=== PATIENT | male | born 1995 | race African-American/Black ===

== ENCOUNTER 2021-07-02 06:42 | Emergency (ER) | payer OTHER ==
[~2021-07-02] VITALS: Ht 180.3 cm; Wt 77.1 kg
[~2021-07-02 06:42] MED LIST: IBUPROFEN 200200 M1 PO; IBUPROFEN 800800 MG PO; NORCO 5-325 TA1 EACH PO; PERCOCET 5-3251 EACH PO
[2021-07-02 07:39] LABS: HEMATOCRIT 41.7 % (42.0-52.0); HEMOGLOBIN 14.1 gm/dL (14.0-18.0); MCH 29.4 pg (26.0-34.0); MCHC 33.9 g/dL (28.0-37.0); MCV 86.8 fL (80.0-100.0); MPV 8.6 fl. (7.2-11.1); NUCLEATED RBCS 0 /100WBC; PLATELET COUNT* 162 thou/uL (150-400); RDW-CV 13.2 % (10.5-14.5); WBC 4.6 thou/uL (4.0-11.0)
[2021-07-02 08:09] LABS: CALCIUM 9.2 mg/dL (8.5-10.1); CREATININE 1.4 mg/dL (0.6-1.3); POTASSIUM 4.1 mmol/L (3.5-5.1)
[2021-07-02 08:23] LABS: CK-MB MASS 0.8 ng/mL (<0.5-3.6); MAGNESIUM 2.2 mg/dL (1.8-2.4); TOTAL BILIRUBIN 0.5 mg/dL (<0.1-1.0)
[2021-07-02 08:25] VITALS: BP 124/67
[2021-07-02 09:07] LABS: ABSOLUTE LYMPHOCYTES 1.2 thou/uL (0.8-5.3); ABSOLUTE NEUTROPHILS 2.4 thou/uL (1.6-8.1); PLATELET ESTIMATE ADEQUATE
--- NOTE | 2021-07-03 15:13 | EKG ---
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1995 Requested By: Chase Broderick Order Number: [id number] MD: Sahil Lozano Measurements Intervals [place] Rate: 81 P: 73 [place]: 163 QRS: 85 QRSD: 85 T: 57 QT: 360 QTc: 418 Interpretive Statements Sinus rhythm RSR' in V1 or V2, probably normal variant ST elev, probable normal early repol pattern No previous ECG available for comparison Electronically Signed On 07-03-2021 15:13:09 AUTOMATION CONTROL TECHNICIAN by Sahil Lozano [email or web address] <ELECTRONICALLY SIGNED> By: Sahil Lozano MD, FACC 07/03/21 1513 0641 0641 Sahil Lozano MD, FAC /EPI
== END 2021-07-02 08:25 | disposition home or self-care (01) ==
LOC: M.ERS 06:42
PROVIDERS: Family Medicine
DX: R07.89 Other chest pain (principal); Z88.5 Allergy status to narcotic agent

== ENCOUNTER 2021-07-10 03:00 | Emergency (ER) | payer OTHER ==
[~2021-07-10] VITALS: Ht 180.3 cm; Wt 77.1 kg
[2021-07-10] MEDS ORDERED: AMOXICILLIN875 MG PO (03:34)
[2021-07-10] MEDS ORDERED: ACETAMINOPHEN-1 EAC2 PO (03:38)
[2021-07-10] MEDS ORDERED: IBU600 MG PO (03:38)
[2021-07-10 03:49] VITALS: BP 132/56
== END 2021-07-10 03:49 | disposition home or self-care (01) ==
LOC: M.ERS 03:00
DX: J02.0 Streptococcal pharyngitis (principal)